=== PATIENT | female | born 1945 | race Two or more races ===

== ENCOUNTER 2016-12-15 13:16 | Emergency (ER) | payer MEDICARE, MEDICAID ==
[2016-12-15 13:57] LABS: Basophils % (Auto) 0.4 % (0.0-1.8); Hematocrit 37.9 % (30.3-42.9); Hemoglobin 12.2 gm/dl (10.1-14.3); Mean Corpuscular HGB Conc 32 % (30-34); Mean Corpuscular Hemoglobin 27 pg (28-32); Mean Corpuscular Volume 83 fl (79-97); Platelet Count 320 K/mm3 (140-440); Red Blood Count 4.55 M/mm3 (3.65-5.03); Red Cell Distribution Width 13.7 % (13.2-15.2); White Blood Count 10.5 K/mm3 (4.5-11.0)
[2016-12-15 14:09] LABS: Alanine Aminotransferase 17 units/L (7-56); Albumin 4.2 g/dL (3.9-5); Albumin/Globulin Ratio 1.4 %; Alkaline Phosphatase 89 units/L (35-129); Anion Gap 18 mmol/L; BUN/Creatinine Ratio 21.66; Bilirubin,Total 0.2 mg/dL (0.1-1.2); Blood Urea Nitrogen 13 mg/dL (7-17); Carbon Dioxide 24 mmol/L (22-30); Chloride 102.2 mmol/L (98-107); Glucose 141 mg/dL (65-100); Lipase 33 units/L (13-60); Potassium 3.9 mmol/L (3.6-5.0); Sodium 140 mmol/L (137-145); Total Protein 7.2 g/dL (6.3-8.2)
[2016-12-15 14:52] LABS: Bilirubin,Urine NEG (Negative); Blood,Urine NEG (Negative); Ketones,Urine NEG (Negative); Leukocyte Esterase,Urine NEG (Negative); Mucus,Urine FEW /HPF; Nitrite,Urine NEG (Negative); Protein,Urine <15 mg/dL mg/dL (Negative); RBC,Urine < 1.0 /HPF (0.0-6.0); Urobilinogen,Urine < 2.0 mg/dL (<2.0); WBC,Urine < 1.0 /HPF (0.0-6.0)
[2016-12-15] MEDS ORDERED: NACL 0.9% 1000 ML 1,000 ML IV ONE (15:20)
[2016-12-15] MEDS ORDERED: NACL ONE (16:11)
--- NOTE | 2016-12-15 17:40 | Cat Scan Report ---
FINAL REPORT EXAM: CT ABDOMEN PELVIS W CON HISTORY: upper abd pains TECHNIQUE: Standard enhanced CT of the abdomen and pelvis at 1.25 mm and 2.5 mm axial increments. Coronal and sagittal reconstruction was also performed. Contrast: 100 mL Isovue 300 given IV. PRIORS: None. FINDINGS: There is mild wall thickening of the distal aspect of the stomach in the pyloric region and duodenal bulb. Subtle haziness in the adjacent fat is seen anteriorly. Findings suggest gastritis or ulcer disease. Neoplasm is not entirely excluded. Remainder of the stomach is collapsed. Within the abdomen, the liver, spleen, pancreas, and adrenal glands are unremarkable. A 1.4 cm gallstone is present in the gallbladder. There is a 1.8 cm cyst in the upper pole left kidney. A smaller 8 mm cyst is seen in the lateral mid pole right kidney. There is focal cortical thinning in the upper pole of the right kidney. There is mild concentric wall thickening of an 8 cm long segment of the mid transverse colon (axial image 186, series 2). No surrounding inflammation in the adjacent fat is seen. This may be due to partial contraction of the segment, however, findings can also be consistent with mild colitis versus neoplasm. No evidence for retroperitoneal or pelvic lymphadenopathy is seen. The bowel loops have normal caliber. No free air is seen within the abdomen or pelvis. The appendix is not visualized. Moderate calcification of aorta is seen. Within the pelvis, the bladder is unremarkable. The uterus has been surgically removed. No evidence for mass or lymphadenopathy is seen in the pelvis. There is a trace amount of low-density free fluid in the pelvis. Images through the upper abdomen include the lung bases which are expanded and clear. Bony structures show degenerative disc changes at L4-L5. There is a small sclerotic bone island in the right femoral head. Incidental partial sacralization of L5 bilaterally is noted, a normal congenital variant. IMPRESSION: 1. Wall thickening of the distal stomach in the pyloric region and duodenal bulb with adjacent haziness in the fat. Findings suggest gastritis or ulcer disease. 2. mild concentric wall thickening of the mid transverse colon without surrounding inflammation. This may be due to partial contraction of the segment, however, findings can also be consistent with mild colitis versus neoplasm. 3. Cholelithiasis 4. Cyst in each kidney
--- NOTE | 2016-12-15 17:59 | Emergency Department Report ---
ED Abdominal Pain HPI - General Chief Complaint: Abdominal Pain Stated Complaint: ABD PAIN Time Seen by Provider: 12/15/16 15:14 Source: patient, EMS Mode of arrival: Stretcher Limitations: No Limitations - History of Present Illness Initial Comments: This is a pleasant 71-year-old female who reports 2 day history of epigastric abdominal pain. She states that the pain is waxing and waning in nature. No radiation is noted as well. She reports normal appetite. She denies any prior history of surgical problems. She is not on antacids. She states that she has not had a history of dyspepsia or peptic ulcer disease in the past. Severity scale (0 -10): 9 Consistency: intermittent Improves With: nothing Worsens With: nothing Associated Symptoms: denies: nausea, vomiting, diarrhea, fever - Related Data Previous Rx's Medication Instructions Recorded Last Taken Type Omeprazole 40 mg PO DAILY #30 capsule. 12/15/16 Unknown Rx Allergies Allergy/AdvReac Type Severity Reaction Status Date / Time No Known Allergies Allergy Unverified 12/15/16 13:27 ED Review of Systems ROS: Stated complaint: ABD PAIN Other details as noted in HPI Comment: All other systems reviewed and negative Constitutional: denies: chills, fever Eyes: denies: eye pain, eye discharge, vision change ENT: denies: ear pain, throat pain Respiratory: denies: cough, shortness of breath, wheezing Cardiovascular: denies: chest pain, palpitations Endocrine: no symptoms reported Gastrointestinal: abdominal pain. denies: nausea, diarrhea Genitourinary: denies: urgency, dysuria, discharge Musculoskeletal: denies: back pain, joint swelling, arthralgia Skin: denies: rash, lesions Neurological: denies: headache, weakness, paresthesias Psychiatric: denies: anxiety, depression Hematological/Lymphatic: denies: easy bleeding, easy bruising ED Past Medical Hx - Past Medical History Hx Hypertension: Yes - Surgical History Past Surgical History?: No - Social History Smoking Status: Never Smoker Substance Use Type: None - Medications Home Medications: Home Medications Medication Instructions Recorded Confirmed Last Taken Type Omeprazole 40 mg PO DAILY #30 capsule. 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 Absent: tenderness - Respiratory Respiratory exam: Present: normal lung sounds bilaterally. Absent: respiratory distress, wheezes, rales - Cardiovascular Cardiovascular Exam: Present: regular rate, normal rhythm. Absent: systolic murmur, diastolic murmur, rubs, gallop - GI/Abdominal GI/Abdominal exam: Present: soft, tenderness (minimal epigastric and left upper quadrant region.), normal bowel sounds. Absent: guarding, rebound - Extremities Exam Extremities exam: Present: normal inspection. Absent: tenderness, pedal edema, calf tenderness - Back Exam Back exam: Present: normal inspection. Absent: tenderness, CVA tenderness (R), CVA tenderness (L) - Neurological Exam Neurological exam: Present: alert, oriented X3 - Psychiatric Psychiatric exam: Present: normal affect, normal mood - Skin Skin exam: Present: warm, dry, intact, normal color. Absent: rash ED Course Vital Signs 12/15/16 12/15/16 12/15/16 11:16 11:30 11:46 Temperature Pulse Rate 99 H 94 H 96 H Respiratory 24 27 H Rate Blood Pressure 155/97 165/108 Blood Pressure [Left] Blood Pressure [Right] O2 Sat by Pulse 95 99 Oximetry 12/15/16 12/15/16 12/15/16 12:00 13:39 13:43 Temperature Pulse Rate 93 H Respiratory 22 18 Rate Blood Pressure 170/107 179/75 Blood Pressure [Left] Blood Pressure [Right] O2 Sat by Pulse 96 Oximetry 12/15/16 12/15/16 12/15/16 13:45 13:49 14:00 Temperature 98.5 F Pulse Rate 84 Respiratory 16 Rate Blood Pressure 179/79 169/78 Blood Pressure 179/79 [Left] Blood Pressure 179/79 [Right] O2 Sat by Pulse 96 97 96 Oximetry 12/15/16 12/15/16 12/15/16 14:15 14:30 14:45 Temperature Pulse Rate Respiratory Rate Blood Pressure 176/71 156/74 165/74 Blood Pressure [Left] Blood Pressure [Right] O2 Sat by Pulse 97 99 97 Oximetry 12/15/16 12/15/16 12/15/16 15:00 15:15 15:30 Temperature Pulse Rate Respiratory Rate Blood Pressure 177/77 177/78 172/82 Blood Pressure [Left] Blood Pressure [Right] O2 Sat by Pulse 97 97 96 Oximetry 12/15/16 12/15/16 12/15/16 15:45 16:00 16:19 Temperature Pulse Rate Respiratory Rate Blood Pressure 168/78 165/77 168/78 Blood Pressure [Left] Blood Pressure [Right] O2 Sat by Pulse 97 98 97 Oximetry 12/15/16 12/15/16 12/15/16 16:45 17:00 17:15 Temperature Pulse Rate Respiratory Rate Blood Pressure 168/78 185/81 186/67 Blood Pressure [Left] Blood Pressure [Right] O2 Sat by Pulse 97 97 96 Oximetry 12/15/16 12/15/16 12/15/16 17:30 17:45 18:00 Temperature Pulse Rate Respiratory Rate Blood Pressure 163/79 174/75 169/78 Blood Pressure [Left] Blood Pressure [Right] O2 Sat by Pulse 95 97 96 Oximetry 12/15/16 18:15 Temperature Pulse Rate Respiratory Rate Blood Pressure 143/55 Blood Pressure [Left] Blood Pressure [Right] O2 Sat by Pulse 95 Oximetry - Reevaluation(s) Reevaluation #1: 12/15/16 19:47 Initial lab evaluation was unremarkable in nature. Urinalysis was equally unremarkable. My suspicion is low for surgical etiology. I did have a long conversation with family regarding options. They were interested in pursuing CT study. This was performed. This study demonstrated several mild abnormalities that are nonspecific nature. Note was mild gastroduodenal region edema consistent with mild gastritis. There is suspicion/question of cancer in this region though it is not specifically strongly supported. There is noted to be gallstones well. No acute pathology is noted at this time however. I did reassure the patient that with the medication in good did diet modification and she should have recovery and no concerning long-term problems. I did encourage her to follow up with GI if her symptoms persist despite treatment. I did discuss with her than very slight possibility of cancer etiology as well. ED Medical Decision Making - Lab Data Result diagrams: 12/15/16 13:37 12/15/16 13:37 Critical care attestation.: If time is entered above; I have spent that time in minutes in the direct care of this critically ill patient, excluding procedure time. ED Disposition Clinical Impression: Gastritis Qualifiers: Gastritis type: unspecified gastritis Chronicity: acute Gastritis bleeding: without bleeding Qualified Code(s): K29.00 - Acute gastritis without bleeding Disposition: DISCHARGED TO HOME OR SELFCARE Is pt being admited?: No Does the pt Need Aspirin: No Condition: Stable Instructions: Peptic Ulcer (ED), Gastritis (ED) Additional Instructions: Eat a very bland diet. Take tylenol as needed for pains. Prescriptions: Omeprazole 40 mg PO DAILY #30 capsule.dr Referrals: PRIMARY CARE, [Primary Care Provider] - 3-5 Days [facility] [Provider Group] - 3-5 Days Time of Disposition: 17:59
[2016-12-15 19:19] VITALS: BP 143/55
== END 2016-12-15 18:25 | disposition home or self-care (01) ==
LOC: ED 13:16
DX: K29.00 Acute gastritis without bleeding (principal); I10 Essential (primary) hypertension
CPT/HCPCS: 36415; 74177; 80053; 81001; 83690; 85025; 96360; 99284; J7030; Q9967